=== PATIENT | female | born 1970 | race Caucasian/White ===

== ENCOUNTER 2019-04-01 20:40 | Emergency (ER) | payer BC ==
[2019-04-01] MEDS ORDERED: IBUPROFEN 400 MG TABLET PO ONE (20:49)
--- NOTE | 2019-04-01 20:53 | Emergency Department Record ---
History of Present Illness - General Chief Complaint: Ankle/Foot Injury Stated Complaint: LT FOOT INJURY Time Seen by Provider: 04/01/19 20:43 Source: Patient Mode of Arrival: Ambulatory Limitations: No limitations - History of Present Illness Initial Comments: 48 yo female presents to ED for evaluation following an injury to the left foot while at home this evening, occurred approximately 1 hours ago in the kitchen. Patient reports "stepping on it wrong, heard a snap" followed by pain and difficulty with weight bearing. Patient denies injury to the ankle/lower leg, denies health problems at her baseline. Patient has not taken anything for pain [employer]. MD Complaint: Foot injury Onset/Timin -: Hour(s) Injury: Foot: Left Type of Injury: Unknown Place: Home Severity: Moderate Improves With: Immobilization Worsens With: Weight bearing - Related Data Home Medications Medication Instructions Recorded Confirmed Last Taken Atenolol 25 mg PO ASDIR 04/01/19 04/01/19 Unknown Atorvastatin Calcium [Lipitor] 10 mg PO QHS 04/01/19 04/01/19 Unknown Hydrochlorothiazide [Hctz] 25 mg PO DAILY 04/01/19 04/01/19 Unknown Insulin Regular, Human [Humulin R] 100 unit SQ ASDIR 04/01/19 04/01/19 Unknown Lisinopril 10 mg PO DAILY 04/01/19 04/01/19 Unknown Allergies Allergy/AdvReac Type Severity Reaction Status Date / Time No Known Drug Allergies Allergy Verified 04/01/19 20:54 Review of Systems Constitutional: Denies: Chills, Fever, Malaise, Night sweats Eyes: Denies: Eye discharge, Eye pain ENT: Denies: Congestion, Ear pain Respiratory: Denies: Cough, Dyspnea Cardiovascular: Denies: Chest pain, Dyspnea on exertion Endocrine: Denies: Fatigue, Heat or cold intolerance Gastrointestinal: Denies: Abdominal pain, Nausea, Vomiting Genitourinary: Denies: Incontinence, Retention Musculoskeletal: Reports: Arthralgia. Denies: Back pain, Gout, Joint swelling Skin: Denies: Bruising, Change in color Neurological: Denies: Abnormal gait, Confusion, Headache, Seizure Psychiatric: Denies: Anxiety Hematological/Lymphatic: Denies: Anemia, Blood Clots Physical Exam - General General Appearance: Alert, Oriented x3, Cooperative, Mild distress Limitations: No limitations - Head Head exam: Atraumatic, Normocephalic, Normal inspection Head exam detail: negative: Abrasion, Contusion, Moran's sign, General tenderness, Hematoma, Laceration - Eye Eye exam: Normal appearance. negative: Conjunctival injection, Periorbital swelling, Periorbital tenderness, Scleral icterus - ENT Ear exam: negative: Auricular hematoma, Auricular trauma Nasal Exam: negative: Active bleeding, Discharge, Dried blood, Foreign body Mouth exam: negative: Drooling, Laceration, Muffled voice, Tongue elevation - Neck Neck exam: Normal inspection. negative: Meningismus, Tenderness - Respiratory Respiratory exam: Normal lung sounds bilaterally. negative: Rales, Respiratory distress, Rhonchi, Stridor - Cardiovascular Cardiovascular Exam: Regular rate, Normal rhythm, Normal heart sounds Peripheral Pulses: 3+: Dorsalis Pedis (L) - Rectal Rectal exam: Deferred - exam: Deferred - Extremities Extremities exam: Tenderness, Other (TTP over the lateral foot, forefoot dorsally. No pain over the ankle on examination, no pain over the proximal fibula. Achilles intact, strong DPP present.). negative: Calf tenderness, Pedal edema - Back Back exam: Denies: CVA tenderness (R), CVA tenderness (L) - Neurological Neurological exam: Alert, Oriented X3 - Psychiatric Psychiatric exam: Normal affect, Normal mood - Skin Skin exam: Normal color. 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 Martin as directed. Patient appears stable for discharge at this time. Disposition Disposition: Discharge Clinical Impression: Foot fracture, left Qualifiers: Encounter type: initial encounter Fracture type: closed Qualified Code(s): S92.902A - Unspecified fracture of left foot, initial encounter for closed frac ture Disposition: Home, Self-Care Condition: (2) Stable Instructions: Foot Fracture in Adults (ED) Additional Instructions: Return to ED if your symptoms worsen or if you have any concerns. Ibuprofen as directed. Fracture boot and crutches as directed. Follow-up with Dr. Martin or Dr. Landrum 3-5 days as directed. Referrals: Joon Martin D.PLisa [DOCTOR OF PODIATRY MEDICINE] - Forms: Patient Portal Access Time of Disposition: 21:14 Quality - Quality Measures Quality Measures: N/A - Blood Pressure Screening Does Patient Have Any of the Following: No Blood Pressure Classification: Hypertensive Reading Systolic Measurement: 166 Diastolic Measurement: 74 Screening for High Blood Pressure: < First Hypertensive BP, F/U Documented > [[id number]] First Hypertensive Follow-up Interventions: Referral to alternative/primary care provider.
--- NOTE | 2019-04-03 08:58 | RADIOLOGY REPORT ---
EXAMINATION: Left foot 3 views. CLINICAL HISTORY: Walking in her kitchen when she felt a crack in her foot. COMPARISON: None. FINDINGS: Previous surgical changes involving the 1st metatarsal and 1st proximal phalanx. Note is made of a nondisplaced oblique fracture involving the distal third shaft of the 5th metatarsal. Mild soft tissue swelling. The bones are osteopenic. IMPRESSION: Nondisplaced 5th metatarsal fracture. MTDD
== END 2019-04-01 21:34 | disposition home or self-care (01) ==
LOC: ER 20:40
DX: S92.355A Nondisplaced fracture of fifth metatarsal bone, left foot, initial encounter for closed fracture (principal); X50.0XXA Overexertion from strenuous movement or load, initial encounter; Y92.009 Unspecified place in unspecified non-institutional (private) residence as the place of occurrence of the external cause
CPT/HCPCS: 99283; 99284